=== PATIENT | male | born 1990 | race Two or more races ===

== ENCOUNTER 2018-09-23 09:02 | Emergency (ER) | payer OTHER ==
[~2018-09-23] VITALS: Ht 170.2 cm; Wt 84.0 kg
[2018-09-23 09:18] VITALS: BP 128/89
[2018-09-23] MEDS ORDERED: KETOROLAC 30 MG/1 ML IM ONE (09:30)
[2018-09-23] MEDS ORDERED: KETOROLAC 30 MG/1 ML ONE (09:33)
[2018-09-23] MEDS ORDERED: PLEASE ENTER ALLERGIES MC SCH (10:00)
== END 2018-09-23 10:12 | disposition home or self-care (01) ==
LOC: ED 10:06
DX: S40.011A Contusion of right shoulder, initial encounter (principal); S40.021A Contusion of right upper arm, initial encounter; F17.200 Nicotine dependence, unspecified, uncomplicated; X50.1XXA Overexertion from prolonged static or awkward postures, initial encounter; Y93.89 Activity, other specified; Y99.8 Other external cause status; Y92.89 Other specified places as the place of occurrence of the external cause
CPT/HCPCS: 73030; 96372; 99284; J1885